=== PATIENT | female | born 1950 | race Two or more races ===

== ENCOUNTER 2016-11-02 14:18 | Emergency (ER) | payer SELFPAY ==
[2016-11-02] MEDS ORDERED: ETOMIDATE 2 MG/ML 10ML VIAL IV ONE (14:46)
[2016-11-02] MEDS ORDERED: SODIUM CHLORIDE 0.9% 500 ML ONE (14:47)
[2016-11-02 14:55] LABS: ABSOLUTE NEUTROPHIL COUNT 3.8 K/mm3 (1.8-7.7); BASO % 0.3 % (0.2-1.0); EOS % 0.5 % (0.9-2.9); HEMATOCRIT 38.7 % (37.0-47.0); HEMOGLOBIN 12.9 gm/l (12.0-16.0); IMM NEUT% 0.1 % (0-1); LYMPH # 3.5 (1.0-4.8); LYMPH % 43.7 % (15-45); MEAN CELL VOLUME 105.7 fl (81.0-99.0); MEAN CORPUSCULAR HEMOGLOBIN 35.2 pg (27.0-31.0); MEAN CORPUSCULAR HGB CONC 33.3 g/dl (33.0-37.0); MEAN PLATELET VOLUME 11.4 fl (7.4-10.4); MONO # 0.6 (0.0-0.8); NEUT % 47.4 % (43-75); PLATELET COUNT 54 K/mm3 (130-400); RED CELL DISTRIBUTION WIDTH 14.1 % (11.5-14.5)
[2016-11-02 15:00] LABS: INR 0.94; PROTHROMBIN TIME 9.9 SECONDS (9.3-11.4)
[2016-11-02 15:11] LABS: TROPONIN I 0.02 ng/ml (0.0-0.06)
[2016-11-02 15:15] LABS: CKMB ISOENZYME 4.1 ng/ml (0.6-6.3)
[2016-11-02 15:21] LABS: THYROID STIMULATING HORMONE 1.81 uIU/ml (0.34-5.60)
[2016-11-02 15:30] LABS: ALB/GLOB RATIO 0.9 (>1.0); ALBUMIN 3.7 gm/dL (3.5-5.7); CALCIUM 9.1 mg/dL (8.6-10.3)
[2016-11-02] MEDS ORDERED: ASPIRIN CHEWTAB 81 MG TABLET ONE (15:46)
--- NOTE | 2016-11-03 08:06 | RAD ---
CHEST-AP BEDSIDE HISTORY: Jaw and upper chest pain. COMPARISONS: 08/24/2015. FINDINGS: A single view of the chest demonstrates a low inspiratory volume. The heart size is within expected for technique. No gross infiltrate, effusion or pneumothorax is visualized. The hilar and mediastinal structures are intact. IMPRESSION: 1. A low inspiratory volume. 2. No active intrathoracic process.
== END 2016-11-02 17:16 | disposition home or self-care (01) ==
LOC: ED 14:18
DX: I48.91 Unspecified atrial fibrillation (principal); I10 Essential (primary) hypertension; E66.9 Obesity, unspecified; Z68.41 Body mass index [BMI] 40.0-44.9, adult
CPT/HCPCS: 83880; 85025; 82553; 80053; 83735; 85610; 84443; 84484; 71010; 99284; 92960 ×2; 99152 ×2; 93005 ×2; 99291; A9270; J7040